=== PATIENT | male | born 1965 | race Hispanic/Latino ===

== ENCOUNTER 2017-05-09 23:43 | Emergency (ER) | payer OTHER, SELFPAY | END 2017-05-10 00:34 | LOC: ERS 23:43 | DX: S20.411A Abrasion of right back wall of thorax, initial encounter (principal); J45.909 Unspecified asthma, uncomplicated; I10 Essential (primary) hypertension; F20.9 Schizophrenia, unspecified; F17.210 Nicotine dependence, cigarettes, uncomplicated; Z71.6 Tobacco abuse counseling; Y04.0XXA Assault by unarmed brawl or fight, initial encounter | CPT/HCPCS: 99406 ==